=== PATIENT | female | born 1945 | race Caucasian/White ===

== ENCOUNTER → 2016-05-15 | Day surgery (SDC) | payer MEDICARE, OTHER ==
[2016-05-07 12:05] VITALS: BMI 25.0
[~2016-05-15] MED LIST: BSS 500 ml-Vancomycin 10 mg-Phenylephrine 1 mg Irrigation IR ONE; CHONDROITIN SULFATE 0.5 ML/PFS INTRAOC ONE; DEXAMETHASONE 4 MG/ML VIAL IV PRN; DIAZEPAM 5 MG TAB PO PRN; FENTANYL 100 MCG/2 ML VIAL IV PRN; FENTANYL 100 MCG/2 ML VIAL ONE; HYDROCODONE 5 MG/ACETAMIN 325 MG TAB PO PRN; Hyaluronate Sodium (Provisc) 5.5 mg/0.55 ml syringe INTRAOC ONE; KETOROLAC TROMETH 30 MG/ML VIAL IV PRN; LABETALOL 20 MG/4 ML SYRINGE IV PRN; LR 1,000 ML IV ONE; LR 1,000 ML IV SCH; MIDAZOLAM 2 MG/2 ML VIAL ONE; NS 1,000 ML IV SCH; NS 250 ML IV SCH; ONDANSETRON HCL 4 MG/2 ML VIAL IV PRN; PHENYLEPHRINE 2.5% OPHTH SOLN 2 ML BOT OP EYE ONE; SCOPOLAMINE TRANSDERMAL PATCH TOP PRN; TETRACAINE 0.5% 2 ML OPHTH SOLN OP EYE ONE; TETRACAINE 0.5% 2 ML OPHTH SOLN OP EYE PRN; TROPICAMIDE 1% OPHTH SOLN 2 ML BOTTLE OP EYE ONE; Vancomycin 10 MG, Phenylephrine 1,000 MCG in Balanced Salt Solution 500 ML IO ONE; hydrALAZINE 20 MG/ML VIAL IV PRN
--- NOTE | 2016-05-15 07:13 | SC.ANESEVA ---
Anesthesia Eval & Plan ([facility]) - Providers Stated Procedure: right eye cataract surgery Surgeon:: Charmaine Caraballo - Medications/Allergies Allergies: Allergies codeine [Codeine] Allergy (Verified 12/30/14 06:49) Nausea/Vomiting Sulfa (Sulfonamide Antibiotics) Allergy (Verified 12/30/14 06:49) Nausea/Vomiting Home Medications: Home Medication List Multivitamin [Multivitamins] PO DAILY 05/07/16 [History] Psyllium Husk [Fiber] PO DAILY 05/07/16 [History] Rivaroxaban [Xarelto] 20 mg PO DAILY 05/07/16 [History] Current Medication List: Reviewed - Focused Physical Exam NPO since: after Midnight Mallampati: Class II Neck: Full Range of Motion Cardiovascular/Chest: Normal Respiratory: Lungs clear Any problems with anesthesia, including nausea and vomiting?: No Any relatives with a history of Malignant Hyperthermia?: No Prone to Motion Sickness: No Other: Diagnoses COMBINED FORMS OF AGE-RELATED CATARACT, RIGHT EYE (05/15/16) Allergies Allergy/AdvReac Type Severity Reaction Status Date / Time codeine [Codeine] Allergy Nausea/Vomi Verified 12/30/14 06:49 ting Sulfa (Sulfonamide Allergy Nausea/Vomi Verified 12/30/14 06:49 Antibiotics) ting Home Medications Medication Instructions Recorded Last Taken Type Apixaban [Eliquis] 5 mg PO BID #60 tablet 12/09/14 12/30/14 05:45 Rx Atorvastatin [Lipitor 20 mg 20 mg PO QHS 12/09/14 12/29/14 23:30 History Tablet] B Complex with Vitamin C [Super B 1 each PO DAILY 12/09/14 12/29/14 09:00 History Complex with C] Gluc HCl/Csa/Evette Hy/Hyalur AC 1 each PO DAILY 12/09/14 12/29/14 09:00 History [Glucosamine Chondroitin Cap] Losartan Potassium [Cozaar] 50 mg PO DAILY 12/09/14 12/29/14 09:00 History Metoprolol Tartrate [Lopressor] 100 mg PO DAILY 12/09/14 12/30/14 05:45 History Sitagliptin Phos/Metformin HCl 1 each PO BID 12/09/14 12/29/14 20:30 History [Janumet 50-1,000 mg Tablet] Vitamin E 400 unit PO DAILY 12/09/14 12/09/14 History Biotin [Marcell Biotin] 5,000 mcg PO BID 12/29/14 12/29/14 09:00 History Hydralazine HCl 10 mg PO DAILY PRN 12/29/14 Unknown History Ibuprofen [Advil] 200 mg PO TID PRN 12/29/14 12/29/14 23:30 History [place]-3 Fatty Acids/Fish Oil [Fish 1 each PO DAILY 12/29/14 12/29/14 23:30 History Oil 1,000 mg Capsule] Multivitamin [Multivitamins] PO DAILY 05/07/16 Unknown History Psyllium Husk [Fiber] PO DAILY 05/07/16 Unknown History Rivaroxaban [Xarelto] 20 mg PO DAILY 05/07/16 Unknown History Height and Weight Patient's height 5 ft 5 in Patient's weight 68.039 kg Weight (Calculated Kilograms) 68.039 BMI 25.0 - Anesthetic Plan Anesthesia Type: MAC ASA Class: 3 - Focused Review of Systems Cardiac History: Yes: Hx Hypertension, Hx Heart Murmur, Hx Afib/Aflutter ( atrial fibrillation 4 MONTHS), Hx Cardiac Disorders, Hx Abnormal Cholesterol/ Hyperlipidemia HEENT: Yes: Hx Vision Problem (glasses), Other HEENT Problems Gastrointestinal: No: Hx Gastrointestinal Disorders Neurological/Musculoskeletal: No: Hx Neurological Disorders Endocrine: Yes: Hx Non-Insulin Dependent Diabetes Blood/Autoimmune: No: Hx AIDS, Hx Hepatitis (type) Smoking Status: Never smoker Other Surgical History: EYE SX-right eye-detached retina-has buckle KIDNEY STONES, LITHOTRIPSY
[2016-05-15 07:19] VITALS: TEMP 97
--- NOTE | 2016-05-15 08:11 | HIMOPRPT ---
DATE OF PROCEDURE: 05/15/16 PREOPERATIVE DIAGNOSIS: Cataract Right eye. POSTOPERATIVE DIAGNOSIS: Cataract Right eye. PROCEDURE: Cataract extraction by phacoemulsification of the Right eye SURGEON: Charmaine Caraballo MD. ANESTHESIA: IV Sedation/Topical. COMPLICATIONS: None. PRE-OPERATIVE EVALUATION: The patient has been examined and deemed medically stable for cataract extraction with no apparent need for inpatient observation; outpatient setting is appropriate. Patient appears to be oriented to time, place and person. PROCEDURE IN DETAIL: The correct eye confirmed by patient, doctor, staff and paperwork. The operative eye was then marked by the doctor in the preoperative area. Eye drops were instilled into the operative eye to dilate the pupil. The patient was transported to the operating room and was placed in the supine position. A time out was performed before the beginning of the procedure. The operative eye was prepped and draped in the usual sterile fashion for ophthalmic surgery, taking care to isolate the lashes from the surgical field. Topical anesthetic drops were instilled into the operative eye. A lid speculum was placed. Betadine 5% was instilled in the operative eye for antiseptic. Microscope was brought into place for use throughout the case. The eye was inspected. A paracentesis incision was created with a side port knife. The temporal limbal corneal incision was performed with a lesa blade. Viscoelastic was injected into the anterior chamber. Capsule forceps were used to create a capsulorhexis. Hydrodissection was performed with BSS. The nucleus was removed by phacoemulsification. Phaco time is noted below. The remaining cortical material was removed by I&A. The capsular bag was noted to be intact and distended with viscoelastic. The Intraocular lens was placed into the intact bag and centered without difficulty. The remaining viscoelastic was removed by I&A. Betadine 5% drops were placed to inspect wound and for antisepsis. Inspection revealed watertight wounds. The lid speculum was removed. Postoperative medications were instilled into the eye and a shield secured over the operative eye. IOL Type [id number] SN [id number] IOL Power 19.5 CDE 5.13 Discharge Summary: There were no complications and the patient was taken to the postoperative area in good condition. Postoperative instructions and outpatient follow up time were given.
[2016-05-15 08:21] VITALS: BP 135/60; PULSE 40
--- NOTE | 2016-05-15 09:17 | SC.ANESPOS ---
Post-Anesthesia Note LOC: Fully Awake Post-Anesthesia Assessment: Awake, Returned to Baseline, Hemodynamically Stable , Pain Control Adequate Phase I & II Recovery Complete: Yes Apparent Anesthesia Complication: No : N - Vital Signs Blood Pressure: 135/60 Pulse: 40 Resp Rate: 18 O2 Sat: 94 Temp: 97.0 F
== END ==
LOC: CPSC 05:54
PROVIDERS: ATTEND Ophthalmology
PROC: 08RJ3JZ Replacement of Right Lens with Synthetic Substitute, Percutaneous Approach (ICD-10-PCS; principal; 2016-05-15 08:00)
DX: H25.811 Combined forms of age-related cataract, right eye (principal); E11.9 Type 2 diabetes mellitus without complications; I10 Essential (primary) hypertension; E78.5 Hyperlipidemia, unspecified; H91.90 Unspecified hearing loss, unspecified ear; I48.91 Unspecified atrial fibrillation; Z79.84 Long term (current) use of oral hypoglycemic drugs; Z79.01 Long term (current) use of anticoagulants; Z79.899 Other long term (current) drug therapy
CPT/HCPCS: 66984; 82962; A9270; V2632; J2250; J3010; J3490